=== PATIENT | female | born 1970 | race Caucasian/White ===

== ENCOUNTER 2018-07-17 19:17 | Emergency (ER) | payer OTHER ==
[2018-07-17 20:01] LABS: ADD MAN DIFF? NO
[2018-07-17 20:11] LABS: BASOPHIL # 0.1 10^3/ul (0.0-0.1); BASOPHILS % 0.7 % (0.0-2.0); EOSINOPHILS # 0.1 10^3/ul (0.0-0.5); EOSINOPHILS % 1.1 % (0.0-7.0); HEMATOCRIT 35.1 % (37.0-47.0); HEMOGLOBIN 11.6 g/dl (12.0-16.0); LYMPHOCYTES # 3.1 10^3/ul (0.8-2.9); LYMPHOCYTES % 34.5 % (15.0-51.0); MEAN CORPUSCULAR HEMOGLOBIN 29.9 pg (29.0-33.0); MEAN CORPUSCULAR VOLUME 90.5 fl (82.0-101.0); MEAN PLATELET VOLUME 9.9 fl (7.4-10.4); MONOCYTE # 0.7 10^3/ul (0.3-0.9); MONOCYTES % 7.4 % (0.0-11.0); NEUTROPHILS % 55.9 % (39.0-77.0); PLATELET COUNT 368 10^3/UL (140-415); RED BLOOD COUNT 3.88 10^6/ul (4.20-5.40)
[2018-07-17 20:20] LABS: INR 0.89; PROTIME 12.1 Sec (11.9-14.9); PT RATIO 0.9
[2018-07-17 20:21] LABS: PARTIAL THROMBOPLASTIN TIME 29.8 Sec (23.0-35.0)
[2018-07-17] MEDS: DIPHENHYDRAMINE 50 MG INJ IV (20:24)
[2018-07-17] MEDS: METOCLOPRAMIDE 10 MG INJ IV (20:24)
[2018-07-17] MEDS: KETOROLAC 30 MG INJ IV (20:25)
[2018-07-17] MEDS: SOD CHLORIDE 0.9% 1,000 ML IV (20:25)
[2018-07-17 20:26] LABS: ANION GAP 9 (5-13); BLOOD UREA NITROGEN 11 mg/dl (7-20); CALCIUM 9.2 mg/dl (8.4-10.2); CARBON DIOXIDE 26 mmol/L (21-31); CHLORIDE 106 mmol/L (97-110); CREATININE 0.55 mg/dl (0.44-1.00); Estimated GFR > 60 mL/min (>60); GLUCOSE 88 mg/dl (70-220); POTASSIUM 4.2 mmol/L (3.5-5.1); SODIUM 141 mmol/L (135-144)
== END 2018-07-17 21:32 | disposition home or self-care (01) ==
LOC: FTE 19:17
DX: R51 Headache (principal); M54.5 Low back pain; M54.2 Cervicalgia
CPT/HCPCS: 36415; 70450; 72125; 80048; 81025; 85025; 85610; 85730; 96374; 96375; 99285-25